=== PATIENT | male | born 1950 | race Caucasian/White ===

== ENCOUNTER 2016-05-22 05:38 | Inpatient (IN) | payer MEDICARE ==
--- NOTE | ~2016-05-22 | EKG ---
PATIENT: KAMAR SCHOFIELD UNIT #: [id number] Ventricular Rate: 58 BPM Atrial Rate: 58 BPM P-R Interval: 134 ms QRS Duration: 98 ms Q-T Interval: 442 ms QTC Calculation(Bezet): 433 ms P [place]: 61 degrees Calculated R [place]: 24 degrees Calculated T [place]: 37 degrees Diagnosis Line: Sinus bradycardia Diagnosis Line: Otherwise normal ECG Diagnosis Line: When compared with ECG of 25-JAN-2009 09:54, Diagnosis Line: T wave amplitude has increased in Lateral leads Diagnosis Line: Confirmed by PETRONA ROYAL MD ([id number]) on 05/22/2016 Diagnosis Line: 4:45:40 PM INTERPRETING MD: LELE BOLDEN
--- NOTE | ~2016-05-22 | DS ---
Unit #: [id number] #: [id number] Patient: KAMAR SCHOFIELD [id number] [address] [place], [place] [address] [id number] I MR#: [id number] NAME: KAMAR SCHOFIELD ROOM: 456 Age: 66 Sex: M Admission Date: 05/22/2016 : 1950 Discharge Date: 05/26/2016 Attending Physician: Montez Ocampo M.D. Primary Care Physician: Mauro Renner M.D. DISCHARGE SUMMARY DISCHARGE DIAGNOSIS Laparoscopic band erosion. PROCEDURE Removal of laparoscopic adjustable gastric band. HOSPITAL COURSE The patient is a 66-year-old gentleman who presented with fevers, abdominal pain, findings consistent with band erosion. He underwent exploratory laparotomy with band removal. His postop course was relatively uncomplicated. He was advanced to a liquid diet, which he tolerated after postoperative swallow study showed no evidence of a leak. He did run a fever on postoperative day number 3. Thus, repeat swallow confirmed no ongoing leak. Thus, the Timothy-Junior drain was removed. He was continued on a liquid diet. DISPOSITION The patient will be discharged home. CONDITION UPON DISCHARGE Good condition. DISCHARGE DIET He is to follow a liquid diet for 3 more days and then soft solids. DISCHARGE MEDICATIONS His regular home medications and [place] 7.5 mg q.4 p.r.n. He is also on Augmentin 875 mg b.i.d. for the next 4 days. FOLLOWUP He is to follow up with Dr. Ocampo in 1 week. Dictated by... Sandra Randle/leisa TD: 05/27/2016 10:25 JOB #: [id number] Unit #: [id number] #: [id number] Patient: KAMAR SCHOFIELD DISCHARGE SUMMARY X Montez Ocampo MD X DISCHARGE SUMMARY
--- NOTE | ~2016-05-22 | CR71 ---
[facility] A Service of [facility] RADIOLOGY TEXT RESULTS PATIENT: KAMAR SCHOFIELD LOCATION: [facility] 456-01 : [birth year] UNIT #: [id number] AGE: [address]: Montez Ocampo MD SEX: M ORDER DR: [id number] [facility] [address] [facility]. [place], [place] [address] [id number] I MR#: [id number] Acc #: [id number] NAME: KAMAR SCHOFIELD : 1950 SEX: M STUDY DATE/TIME: 05/23/2016 17:27 UNIT: [facility] ROOM: [facility] STUDY DESCRIPTION: CR Chest Single View Attending Physician: Montez Ocampo M.D. Ordering Physician: Aaron Bowden M.D. Primary Care Physician: Mauro Renner M.D. MEDICAL IMAGING REPORT This report is preliminary unless electronic signature is present EXAM Portable chest HISTORY Fever for 1 week. FINDINGS The cardiac size and pulmonary vascularity are within normal limits. No infiltrates or effusions. Mild linear atelectasis or scarring in the left lung base and in the right mid lung. IMPRESSION No acute findings and no active disease. Dictated by... Enrique Shabazz M.D. THIS IS AN ELECTRONICALLY VERIFIED REPORT Enrique Shabazz M.D. at 05/24/2016 1:57 PM ARMAND/floyd TD: 05/24/2016 11:46 JOB #: [id number] MEDICAL IMAGING REPORT COPY
--- NOTE | ~2016-05-22 | CR265 ---
[facility] A Service of [facility] RADIOLOGY TEXT RESULTS PATIENT: KAMAR SCHOFIELD LOCATION: [facility] 456-01 : [birth year] UNIT #: [id number] AGE: [address]: Montez Ocampo MD SEX: M ORDER DR: [id number] [facility] [address] [place], [place] [address] [id number] I MR#: [id number] Acc #: [id number] NAME: KAMAR SCHOFIELD : 1950 SEX: M STUDY DATE/TIME: 05/22/2016 10:51 UNIT: C4B ROOM: [facility] STUDY DESCRIPTION: CR Upper GI Series Wo KUB Attending Physician: Montez Ocampo M.D. Ordering Physician: Montez Ocampo M.D. Primary Care Physician: Mauro Renner M.D. MEDICAL IMAGING REPORT This report is preliminary unless electronic signature is present EXAM Gastrografin upper GI 05/22/2016 INDICATIONS Status post lap band removal. Clinical concern for leak. TECHNIQUE Following a directional survey drafter fluoroscopic image of the left upper quadrant, spot fluoroscopic views of the GE junction were performed in various projections after the patient ingested a liquid Gastrografin solution (approximately 240 mL). No relevant comparisons. FINDINGS Notes indicate that approximately 0.9 minutes of fluoroscopy time was used in the case and 73 images from the procedure were saved to the DR PACS system. A radiopaque drainage catheter is present in the left upper quadrant at the operative bed. Initial sips of Gastrografin demonstrated no evidence of extraluminal contrast or leak. Subsequent swallows of Gastrografin, however, demonstrated imaging findings most characteristic of what appears to represent a contained leak related to the previously placed laparoscopic gastric band with imaging features suggestive of a contained leak from erosion of the band. There is no free-flowing extravasation of contrast identified and there is no evidence of contrast extending into or opacifying the preexisting radiopaque drain. Imaging findings in the case were discussed personally with Dr. Ocampo at approximately 11:15 a.m. on 05/22/2016. IMPRESSION 1. Abnormal examination demonstrating imaging features most characteristic of sequela of lap-band erosion and contained gastric leak. No free-flowing extravasation of contrast or contrast opacification of the preexisting surgical drainage catheter. Findings have been discussed with Dr. Ocampo as described above. [facility] A Service of [facility] RADIOLOGY TEXT RESULTS PATIENT: KAMAR SCHOFIELD LOCATION: [facility] 456-01 : [birth year] UNIT #: [id number] AGE: [address]: Montez Ocampo MD SEX: M ORDER DR: 2. Notes indicate about 0.9 minutes of fluoroscopy time was used in the case. 73 images from the procedure were saved to the PACS system. 1. Dictated by... Torey Diamond M.D. THIS IS AN ELECTRONICALLY VERIFIED REPORT Torey Diamond M.D. at 05/22/2016 3:40 PM Anna TD: 05/22/2016 13:08 JOB #: [id number] MEDICAL IMAGING REPORT COPY
--- NOTE | ~2016-05-22 | OR ---
Unit #: [id number] #: [id number] Patient: KAMAR SCHOFIELD [id number] [facility] [address]. [place], [place] [address] [id number] Raimundo MR#: [id number] NAME: KAMAR SCHOFIELD ROOM: 456 Date of Procedure: 05/22/2016 Admission Date: 05/22/2016 Surgeon: Montez Ocampo M.D. : 1950 Attending Physician: Montez Ocampo M.D. Primary Care Physician: Mauro Renner M.D. OPERATIVE REPORT PREOPERATIVE DIAGNOSIS Laparoscopic adjustable gastric band erosion. POSTOPERATIVE DIAGNOSIS Laparoscopic adjustable gastric band erosion. PROCEDURES PERFORMED 1. Removal of laparoscopic adjustable gastric band. 2. Removal of laparoscopic adjustable gastric band port. 3. Repair of gastrotomy. ASSISTANT Murali Gibson M.D. ANESTHESIA General endotracheal anesthesia. ESTIMATED BLOOD LOSS Minimal. IV FLUIDS 1200 crystalloid. COMPLICATIONS None. INDICATIONS FOR PROCEDURE The patient is a 66-year-old gentleman, who presents with acute pain and fevers. CT scan shows inflammation of the tubing consistent with a probable erosion. He presents for laparoscopic removal. DESCRIPTION OF PROCEDURE The patient was taken to the operating theater and placed in a supine position. General anesthesia was induced. The abdomen was prepped and draped. A 5 mm Optiview was placed into the right upper quadrant without difficulty. The abdomen was insufflated to 15 mmHg with CO2. General inspection of the abdomen revealed minimal inflammation visualized with the tubing was seen freely coming from the abdominal wall port site. Thus, I cut down on the port and removed the port from its connections to the anterior fascia. The suture material was also removed. I then placed a 5-mm port here. I placed left upper quadrant 10 mm port and left lateral 5 mm. Jairo liver retractor was then placed into position. Unit #: [id number] #: [id number] Patient: KAMAR SCHOFIELD This lifted the left lobe of the liver, identified large area of inflammation. I dissected down with the Bovie electrocautery. I identified the band itself. This was then unbuckled and cut and removed. There was staining of the band consistent with a band erosion. I thus sutured the gastrotomy with one interrupted 0 Ethibond suture in a [id number] fashion. Omentum was then placed as an omental patch and then a Timothy-Junior drain brought in through left upper skin site and then placed over the area of repair. I saw no areas to irrigate. The band and tubing were removed. The ports were removed and the wound was closed with 4-0 Vicryl. The patient tolerated the procedure well and sent to the recovery room in good condition. Dictated by... Sandra Randle/dago TD: 05/23/2016 05:06 JOB #: [id number] OPERATIVE REPORT X Montez Ocampo MD X PROCEDURE OPERATIVE NOTE
--- NOTE | ~2016-05-22 | CR265 ---
[facility] A Service of [facility] RADIOLOGY TEXT RESULTS PATIENT: KAMAR SCHOFIELD LOCATION: [place] [address]-01 : [birth year] UNIT #: [id number] AGE: [address]: Montez Ocampo MD SEX: M ORDER DR: [id number] [facility] [address] [facility]. [place], [place] [address] [id number] I MR#: [id number] Acc #: [id number] NAME: KAMAR SCHOFIELD : 1950 SEX: M STUDY DATE/TIME: 05/25/2016 9:33 UNIT: [facility] ROOM: [facility] STUDY DESCRIPTION: CR Upper GI Series Wo KUB Attending Physician: Montez Ocampo M.D. Ordering Physician: Montez Ocampo M.D. Primary Care Physician: Mauro Renner M.D. MEDICAL IMAGING REPORT This report is preliminary unless electronic signature is present STUDY Esophagram HISTORY Recent bariatric surgery revision with postprocedural leak. PROCEDURE Single-column Gastrografin swallow was performed. A total of 8 spot images were obtained, using a total of 0.9 minutes of fluoroscopy. FINDINGS No evidence of new or residual leak. Dictated by... Pedro Laughlin M.D. THIS IS AN ELECTRONICALLY VERIFIED REPORT Pedro Laughlin M.D. at 05/27/2016 11:48 AM TEV/psc TD: 05/25/2016 21:52 JOB #: [id number] MEDICAL IMAGING REPORT COPY
[~2016-05-22 05:38] MED LIST: ALLEGRA PO; CARTIA XT PO; DITROPAN PO; HCTZ PO; HYZAAR 100-25 T1 TAB PO; KCL PO; LIPITOR PO; NAPROXEN PO; NEXIUM PO
[2016-05-22] MEDS ORDERED: ANTIBIOTIC (06:26)
[2016-05-22 07:09] LABS: BASOPHIL% 0.7 % (0-2.5); EOSINOPHIL# 0.5 X10e3 (0-0.7); EOSINOPHIL% 7.3 % (0.0-7.0); HEMOGLOBIN 12.7 gm/dL (13.0-16.0); LYMPHOCYTE# 0.6 X10e3 (1.0-3.5); LYMPHOCYTE% 9.4 % (17.0-45.0); MEAN CELL VOLUME 80.9 FL (83-96); MEAN CORPUSCULAR HEMOGLOBIN 26.4 PG (28-34); MEAN CORPUSCULAR HGB CONC 32.7 g/dL (30-36); MEAN PLATELET VOLUME 8.1 FL (6.5-11.5); MONOCYTE# 0.5 X10e3 (0-1.0); MONOCYTE% 8.5 % (3.0-12.0); NEUTROPHIL# 4.7 X10e3 (1.5-7.1); NEUTROPHIL% 74.1 % (40-75); PLATELET COUNT 271 X10e3 (140-420); RED BLOOD COUNT 4.82 X10e (3.90-5.60); RED CELL DISTRIBUTION WIDTH 13.8 % (11.0-15.5); WHITE BLOOD COUNT 6.3 X10e3 (4.0-10.5)
[2016-05-22 07:16] LABS: DIFF IND NO
[2016-05-22 07:26] LABS: BLOOD UREA NITROGEN 16 mg/dL (9-23); BUN/CREATININE RATIO 14.54; CALCIUM SERUM 8.9 mg/dL (8.4-10.2); CARBON DIOXIDE 28 mmol/L (22-31); CHLORIDE 98 mmol/L (100-111); CREATININE SERUM 1.1 mg/dL (0.6-1.4); GLOM FILT RATE Estimated ABOVE60 mL/min (>60); GLUCOSE FASTING 114 mg/dL (70-110); POTASSIUM 4.4 mmol/L (3.5-5.1); SODIUM 136 mmol/L (135-145)
[2016-05-22] MEDS ORDERED: NEURONTIN PO (09:35)
[2016-05-22] MEDS ORDERED: REQUIP1 MG PO (09:37)
[2016-05-22] MEDS ORDERED: PROSCAR5 MG PO (09:37)
[2016-05-22] MEDS ORDERED: LIPITOR PO (09:38)
[2016-05-22] MEDS ORDERED: PROZAC PO (09:40)
[2016-05-22] MEDS ORDERED: CIALIS PO (09:41)
[2016-05-22] MEDS ORDERED: OCUVITE TABLET1 TA1 (09:41)
[2016-05-22] MEDS ORDERED: CENTRUM PO (09:41)
[2016-05-22] MEDS ORDERED: LOSARTAN POTASS50 MG PO (17:14)
[2016-05-22] MEDS ORDERED: PANTOPRAZOLE SO40 MG PO (17:15)
[2016-05-22] MEDS ORDERED: HYDROCODONE/APA1 T16 PO (17:16)
[2016-05-22] MEDS ORDERED: MELOXICAM15 MG PO (17:16)
[2016-05-22] MEDS ORDERED: LIORESAL10 MG (17:17)
[2016-05-22] MEDS ORDERED: MOVANTIK25 MG (17:18)
[2016-05-22] MEDS ORDERED: MAGNESIUM400 MG PO (17:19)
[2016-05-22] MEDS ORDERED: VITAMIN B122500 MCG (17:20)
[2016-05-22] MEDS ORDERED: VITAMIN D35000 UNIT PO (17:20)
[2016-05-22] MEDS ORDERED: PROBIOTIC1 EAC5 (17:20)
[2016-05-23 03:32] LABS: BASOPHIL% 0.2 % (0-2.5); DIFF IND NO; EOSINOPHIL# 0.2 X10e3 (0-0.7); EOSINOPHIL% 2.1 % (0.0-7.0); HEMATOCRIT 36.1 % (38.0-50.0); HEMOGLOBIN 11.8 gm/dL (13.0-16.0); LYMPHOCYTE# 0.3 X10e3 (1.0-3.5); LYMPHOCYTE% 3.4 % (17.0-45.0); MEAN CORPUSCULAR HEMOGLOBIN 26.6 PG (28-34); MEAN CORPUSCULAR HGB CONC 32.8 g/dL (30-36); MONOCYTE# 0.3 X10e3 (0-1.0); MONOCYTE% 3.4 % (3.0-12.0); NEUTROPHIL# 8.7 X10e3 (1.5-7.1); NEUTROPHIL% 90.9 % (40-75); PLATELET COUNT 270 X10e3 (140-420); RED BLOOD COUNT 4.45 X10e (3.90-5.60); WHITE BLOOD COUNT 9.6 X10e3 (4.0-10.5)
[2016-05-23 03:50] LABS: GLOM FILT RATE Estimated ABOVE60 mL/min (>60)
[2016-05-23 03:56] LABS: BLOOD UREA NITROGEN 17 mg/dL (9-23); BUN/CREATININE RATIO 15.45; CALCIUM SERUM 8.2 mg/dL (8.4-10.2); CARBON DIOXIDE 28 mmol/L (22-31); CHLORIDE 99 mmol/L (100-111); CREATININE SERUM 1.1 mg/dL (0.6-1.4); GLOM FILT RATE Estimated ABOVE60 mL/min (>60); GLUCOSE FASTING 112 mg/dL (70-110); POTASSIUM 3.9 mmol/L (3.5-5.1); SODIUM 135 mmol/L (135-145)
[2016-05-24 03:00] LABS: HEMATOCRIT 34.7 % (38.0-50.0); HEMOGLOBIN 11.2 gm/dL (13.0-16.0); MEAN CELL VOLUME 81.2 FL (83-96); MEAN CORPUSCULAR HEMOGLOBIN 26.2 PG (28-34); MEAN CORPUSCULAR HGB CONC 32.2 g/dL (30-36); MEAN PLATELET VOLUME 8.1 FL (6.5-11.5); RED BLOOD COUNT 4.28 X10e (3.90-5.60); RED CELL DISTRIBUTION WIDTH 14.1 % (11.0-15.5); WHITE BLOOD COUNT 11.3 X10e3 (4.0-10.5)
[2016-05-24 03:22] LABS: BLOOD UREA NITROGEN 11 mg/dL (9-23); BUN/CREATININE RATIO 13.75; CALCIUM SERUM 8.2 mg/dL (8.4-10.2); CARBON DIOXIDE 29 mmol/L (22-31); CHLORIDE 96 mmol/L (100-111); CREATININE SERUM 0.8 mg/dL (0.6-1.4); GLOM FILT RATE Estimated ABOVE60 mL/min (>60); GLUCOSE FASTING 144 mg/dL (70-110); POTASSIUM 3.8 mmol/L (3.5-5.1); SODIUM 133 mmol/L (135-145)
[2016-05-25 06:41] LABS: BASOPHIL% 0.3 % (0-2.5); EOSINOPHIL# 0.5 X10e3 (0-0.7); EOSINOPHIL% 5.2 % (0.0-7.0); HEMATOCRIT 33.1 % (38.0-50.0); HEMOGLOBIN 10.9 gm/dL (13.0-16.0); LYMPHOCYTE# 0.3 X10e3 (1.0-3.5); LYMPHOCYTE% 3.1 % (17.0-45.0); MEAN CELL VOLUME 80.1 FL (83-96); MEAN CORPUSCULAR HEMOGLOBIN 26.4 PG (28-34); MEAN CORPUSCULAR HGB CONC 32.9 g/dL (30-36); MEAN PLATELET VOLUME 8.3 FL (6.5-11.5); MONOCYTE# 0.4 X10e3 (0-1.0); MONOCYTE% 4.8 % (3.0-12.0); NEUTROPHIL# 7.5 X10e3 (1.5-7.1); NEUTROPHIL% 86.6 % (40-75); PLATELET COUNT 222 X10e3 (140-420); RED BLOOD COUNT 4.13 X10e (3.90-5.60); RED CELL DISTRIBUTION WIDTH 14.4 % (11.0-15.5); WHITE BLOOD COUNT 8.6 X10e3 (4.0-10.5)
[2016-05-25 06:52] LABS: DIFF IND NO
[2016-05-25 09:15] LABS: BLOOD UREA NITROGEN 7 mg/dL (9-23); BUN/CREATININE RATIO 11.66; CALCIUM SERUM 8.4 mg/dL (8.4-10.2); CARBON DIOXIDE 29 mmol/L (22-31); CHLORIDE 99 mmol/L (100-111); CREATININE SERUM 0.6 mg/dL (0.6-1.4); GLOM FILT RATE Estimated ABOVE60 mL/min (>60); GLUCOSE FASTING 143 mg/dL (70-110); POTASSIUM 3.4 mmol/L (3.5-5.1); SODIUM 135 mmol/L (135-145)
[2016-05-26 03:47] LABS: BASOPHIL% 0.3 % (0-2.5); EOSINOPHIL# 0.5 X10e3 (0-0.7); EOSINOPHIL% 6.3 % (0.0-7.0); HEMATOCRIT 34.5 % (38.0-50.0); HEMOGLOBIN 11.6 gm/dL (13.0-16.0); LYMPHOCYTE# 0.5 X10e3 (1.0-3.5); LYMPHOCYTE% 6.1 % (17.0-45.0); MEAN CELL VOLUME 80.5 FL (83-96); MEAN CORPUSCULAR HGB CONC 33.6 g/dL (30-36); MEAN PLATELET VOLUME 7.9 FL (6.5-11.5); MONOCYTE# 0.7 X10e3 (0-1.0); MONOCYTE% 8.7 % (3.0-12.0); NEUTROPHIL# 6.3 X10e3 (1.5-7.1); NEUTROPHIL% 78.6 % (40-75); PLATELET COUNT 231 X10e3 (140-420); RED BLOOD COUNT 4.28 X10e (3.90-5.60)
[2016-05-26 03:52] LABS: DIFF IND NO
[2016-05-26] MEDS ORDERED: HYDROCODON-ACE1 EAC9 PO (08:44)
== END 2016-05-26 10:52 | disposition home or self-care (01) | DRG 328 ==
LOC: CSUR 05:38 → CPACUOF 08:35 → C4B 12:57
PROVIDERS: Surgery
PROC: 0DQ64ZZ Repair Stomach, Percutaneous Endoscopic Approach (ICD-10-PCS; 2016-05-22)
PROC: 05H333Z Insertion of Infusion Device into Right Innominate Vein, Percutaneous Approach (ICD-10-PCS; 2016-05-22)
PROC: B54MZZA Ultrasonography of Right Upper Extremity Veins, Guidance (ICD-10-PCS; 2016-05-22)
PROC: 0DP64CZ Removal of Extraluminal Device from Stomach, Percutaneous Endoscopic Approach (ICD-10-PCS; principal; 2016-05-22 07:30)
DX: K95.09 Other complications of gastric band procedure (principal); E66.9 Obesity, unspecified; I10 Essential (primary) hypertension; K21.9 Gastro-esophageal reflux disease without esophagitis; F17.210 Nicotine dependence, cigarettes, uncomplicated; N40.0 Benign prostatic hyperplasia without lower urinary tract symptoms; Z98.49 Cataract extraction status, unspecified eye; Z96.653 Presence of artificial knee joint, bilateral; Z98.52 Vasectomy status; Z68.38 Body mass index [BMI] 38.0-38.9, adult; E78.00 Pure hypercholesterolemia, unspecified; R50.82 Postprocedural fever; K95.01 Infection due to gastric band procedure
CPT/HCPCS: 71010; 74240; 80048; 80202; 82565; 85025; 85027; 93005; J1170; J1644; J1885; J2270; J2405; J2543; J2710; J3010; J3370; Q9958

== ENCOUNTER 2016-05-31 14:18 | Inpatient (IN) | payer MEDICARE ==
--- NOTE | ~2016-05-31 | CO ---
Unit #: [id number] #: [id number] Patient: KAMAR SCHOFIELD [id number] [place] [address] [facility]. [place], [place] [address] [id number] I MR#: [id number] NAME: KAMAR SCHOFIELD ROOM: 201 Age: 66 Sex: M Admission Date: 05/31/2016 : 1950 Attending Physician: Jorge L Gates M.D. Primary Care Physician: Mauro Renner M.D. Consultation Date: 06/01/2016 CONSULTATION REPORT BRIEF HISTORY The patient is a 66-year-old gentleman, who presents status post removal of lap band, who has been actually doing fairly well. Tolerated regular diet, but with loose bowel movements, who presents with intermittent fevers up to 101. Also left lower quadrant abdominal pain, new onset. He presents for evaluation. PAST MEDICAL HISTORY He had a lap band erosion with the lap band removed approximately week and half ago. He has a history of hypertension and thyroid disease. PAST SURGICAL HISTORY He has had multiple orthopedic operations, lap band insertion, lap band removal. HOME MEDICATIONS Neurontin, Requip, Proscar, Lipitor, Prozac, Centrum, Lotensin, potassium, hydrocodone, magnesium, vitamin B12. SOCIAL HISTORY No smoking, but does drink alcohol occasionally. FAMILY HISTORY Negative for GI malignancy. REVIEW OF SYSTEMS No cardiopulmonary complaints at this time. Else, 10 systems reviewed and negative. PHYSICAL EXAMINATION GENERAL: He is awake, alert, appropriate, currently afebrile. VITAL SIGNS: Temperature 99.2, admission temperature 97.5. Blood pressure 143/60. HEENT: Unremarkable. NECK: Supple. No JVD. Trachea midline. LUNGS: Clear to auscultation. Bilateral breath sounds symmetric. CARDIOVASCULAR: Regular rate and rhythm. ABDOMEN: Soft. It is mildly tender in the left upper quadrant and left lower quadrant. No rebound. No masses. No hepatosplenomegaly. Wounds are healing nicely. EXTREMITIES: No clubbing, cyanosis, or edema. DIAGNOSTIC STUDIES LABORATORY RESULTS: Show white count of 11, hemoglobin 11. Unit #: [id number] #: [id number] Patient: KAMAR SCHOFIELD IMAGING STUDIES: CT scan shows a small amount of air under the diaphragm. There was no fluid collection. This appeared to be inflammation of some diverticulum in the mid to the left colon. ASSESSMENT Likely diverticulitis. Doubt ongoing leak from the lap band removal. No drainable fluid collection. PLAN Recommend antibiotics. We will check for C difficile. We will follow. Dictated by... Montez Ocampo M.D. EDDA/dago TD: 06/01/2016 06:44 JOB #: [id number] CONSULTATION REPORT X Montez Ocampo MD X CONSULTATION REPORT
--- NOTE | ~2016-05-31 | CT2 ---
[facility] A Service of [facility] RADIOLOGY TEXT RESULTS PATIENT: KAMAR SCHOFIELD LOCATION: [facility] : [birth year] UNIT #: [id number] AGE: [address]: Jorge L Gates MD SEX: M ORDER DR: [id number] [facility] [address] [place], [place] [address] [id number] I MR#: [id number] Acc #: [id number] NAME: KAMAR SCHOFIELD : 1950 SEX: M STUDY DATE/TIME: 05/31/2016 16:41 UNIT: C2A ROOM: 201 STUDY DESCRIPTION: CT Abd and Pelv W Cont Attending Physician: Jorge L Gates M.D. Ordering Physician: Yaakov Herrera D.O. Primary Care Physician: Mauro Renner M.D. MEDICAL IMAGING REPORT This report is preliminary unless electronic signature is present EXAM CT abdomen and pelvis with contrast INDICATIONS General abdominal pain. Drainage at incision site. Pain since Wednesday. PROCEDURE Contrast-enhanced CT of the abdomen and pelvis, 100 mL of Isovue-370. This CT exam was performed with one or more of the following radiation dose reduction techniques: Automatic exposure control, adjustment of mA and/or kV according to patient size, and iterative reconstruction. COMPARISON None FINDINGS ABDOMEN WITH CONTRAST: Included lung bases are clear. Hepatic cysts, largest segment V/ junction measures 4.4 cm. The spleen, kidneys, adrenal glands, pancreas and gallbladder are unremarkable. Bowel loops are not significantly dilated. There is free air around the gastroesophageal junction and scattered in the upper abdomen. No drainable fluid collection. There are scattered sigmoid diverticula. There may be mild inflammation of a focal diverticulum in the mid sigmoid colon. No evidence for abscess in this region. PELVIS WITH CONTRAST: No pelvic fluid or mass. IMPRESSION 1. Presumed postsurgical change in the upper abdomen. Correlate with the patient's operative history. There is some free air in the upper [facility] A Service [facility] RADIOLOGY TEXT RESULTS PATIENT: KAMAR SCHOFIELD LOCATION: [facility] : [birth year] UNIT #: [id number] AGE: [address]: Jorge L Gates MD SEX: M ORDER DR: abdomen, particularly around the GE junction. This may be within recent postoperative limits, and again correlate with the patient's operative history. There is no drainable fluid collection. 2. Sigmoid diverticula with possible focal inflammation of a single diverticulum in the mid sigmoid colon. Dictated by... Santos Figueroa M.D. THIS IS AN ELECTRONICALLY VERIFIED REPORT Santos Figueroa M.D. at 06/02/2016 6:59 AM EED/psc TD: 05/31/2016 23:40 JOB #: [id number] MEDICAL IMAGING REPORT COPY
[~2016-05-31 14:18] MED LIST changes: +ANTIBIOTIC; +CENTRUM PO; +CIALIS PO; +HYDROCODON-ACE1 EAC9 PO; +HYDROCODONE/APA1 T16 PO; +LIORESAL10 MG; +LOSARTAN POTASS50 MG PO; +MAGNESIUM400 MG PO; +MELOXICAM15 MG PO; +MOVANTIK25 MG; +NEURONTIN PO; +OCUVITE TABLET1 TA1; +PANTOPRAZOLE SO40 MG PO; +PROBIOTIC1 EAC5; +PROSCAR5 MG PO; +PROZAC PO; +REQUIP1 MG PO; +VITAMIN B122500 MCG; +VITAMIN D35000 UNIT PO
[2016-05-31 14:29] LABS: BASOPHIL# 0.1 X10e3 (0-0.3); BASOPHIL% 0.6 % (0-2.5); EOSINOPHIL# 0.3 X10e3 (0-0.7); EOSINOPHIL% 1.8 % (0.0-7.0); HEMATOCRIT 35.9 % (38.0-50.0); HEMOGLOBIN 11.5 gm/dL (13.0-16.0); LYMPHOCYTE# 0.6 X10e3 (1.0-3.5); LYMPHOCYTE% 4.3 % (17.0-45.0); MEAN CELL VOLUME 80.2 FL (83-96); MEAN CORPUSCULAR HEMOGLOBIN 25.7 PG (28-34); MEAN PLATELET VOLUME 7.7 FL (6.5-11.5); MONOCYTE# 0.9 X10e3 (0-1.0); MONOCYTE% 6.7 % (3.0-12.0); NEUTROPHIL# 11.9 X10e3 (1.5-7.1); NEUTROPHIL% 86.6 % (40-75); PLATELET COUNT 432 X10e3 (140-420); RED BLOOD COUNT 4.48 X10e (3.90-5.60); WHITE BLOOD COUNT 13.7 X10e3 (4.0-10.5)
[2016-05-31 14:38] LABS: DIFF IND NO
[2016-05-31 14:54] LABS: ALBUMIN SERUM 2.7 g/dL (3.5-5.0); ALKALINE PHOSPHATASE 131 U/L (32-92); ALT (SGPT) 58 U/L (10-40); AMYLASE 28 U/L (0-46); AST (SGOT) 53 U/L (10-42); BILIRUBIN, DIRECT 0.2 mg/dL (0.0-0.2); BILIRUBIN,INDIRECT 0.3 mg/dL (0.0-0.9); BILIRUBIN,TOTAL 0.5 mg/dL (0.2-2.0); BLOOD UREA NITROGEN 11 mg/dL (9-23); BUN/CREATININE RATIO 18.33; CALCIUM SERUM 8.9 mg/dL (8.4-10.2); CARBON DIOXIDE 29 mmol/L (22-31); CHLORIDE 96 mmol/L (100-111); CREATININE SERUM 0.6 mg/dL (0.6-1.4); GLOM FILT RATE Estimated ABOVE60 mL/min (>60); GLUCOSE FASTING 115 mg/dL (70-110); LIPASE 28 U/L (22-51); POTASSIUM 4.2 mmol/L (3.5-5.1); PROTEIN TOTAL SERUM 6.8 g/dL (6.0-8.3); SODIUM 136 mmol/L (135-145)
[2016-05-31 15:44] LABS: URINE SOURCE CLEAN CATCH
[2016-05-31 15:52] LABS: URINE APPEARANCE CLEAR; URINE BILIRUBIN NEG (NEG); URINE BLOOD NEG (NEG); URINE COLOR YELLOW; URINE GLUCOSE NEG (NEG); URINE KETONE NEG (NEG); URINE LEUKOCYTE ESTERASE NEG (NEG); URINE NITRATE NEG (NEG); URINE PROTEIN NEG (NEG); URINE SPECIFIC GRAVITY 1.005 (1.003-1.035); URINE UROBILINOGEN 0.2 MG/DL (NEG)
[2016-05-31 15:56] LABS: CULTURE INDICATED? NO
[2016-06-01 05:23] LABS: BASOPHIL# 0.1 X10e3 (0-0.3); BASOPHIL% 0.5 % (0-2.5); EOSINOPHIL# 0.4 X10e3 (0-0.7); HEMATOCRIT 34.7 % (38.0-50.0); HEMOGLOBIN 11.1 gm/dL (13.0-16.0); LYMPHOCYTE# 0.5 X10e3 (1.0-3.5); LYMPHOCYTE% 4.5 % (17.0-45.0); MEAN CELL VOLUME 80.3 FL (83-96); MEAN CORPUSCULAR HEMOGLOBIN 25.6 PG (28-34); MEAN CORPUSCULAR HGB CONC 31.9 g/dL (30-36); MEAN PLATELET VOLUME 7.7 FL (6.5-11.5); MONOCYTE# 0.9 X10e3 (0-1.0); MONOCYTE% 7.7 % (3.0-12.0); NEUTROPHIL% 84.3 % (40-75); PLATELET COUNT 419 X10e3 (140-420); RED BLOOD COUNT 4.32 X10e (3.90-5.60); RED CELL DISTRIBUTION WIDTH 14.5 % (11.0-15.5); WHITE BLOOD COUNT 11.9 X10e3 (4.0-10.5)
[2016-06-01 05:30] LABS: DIFF IND NO
[2016-06-01 05:52] LABS: BLOOD UREA NITROGEN 7 mg/dL (9-23); BUN/CREATININE RATIO 8.75; CALCIUM SERUM 8.6 mg/dL (8.4-10.2); CARBON DIOXIDE 30 mmol/L (22-31); CHLORIDE 95 mmol/L (100-111); CREATININE SERUM 0.8 mg/dL (0.6-1.4); GLOM FILT RATE Estimated ABOVE60 mL/min (>60); GLUCOSE FASTING 125 mg/dL (70-110); POTASSIUM 4.1 mmol/L (3.5-5.1); SODIUM 135 mmol/L (135-145)
[2016-06-01] MEDS ORDERED: ACETAMINOPHEN325 MG PO (13:50)
== END 2016-06-01 15:05 | disposition home or self-care (01) | DRG 392 ==
LOC: CED 14:18 → C2A 17:50
PROVIDERS: Emergency Medicine; Specialist
DX: K57.92 Diverticulitis of intestine, part unspecified, without perforation or abscess without bleeding (principal); I10 Essential (primary) hypertension; E78.5 Hyperlipidemia, unspecified
CPT/HCPCS: 36415; 74177; 80048; 80076; 81003; 82150; 83690; 85025; 99285; C9113; J1650; J1885; J2270; J2543; Q9967